=== PATIENT | female | born 1995 | race Caucasian/White ===

== ENCOUNTER 2017-02-05 18:26 | Emergency (ER) | payer OTHER ==
[~2017-02-05] VITALS: Ht 165.1 cm; Wt 56.8 kg
[2017-02-05] MEDS ORDERED: IBUP-2070 PO (18:50)
[2017-02-05 19:07] LABS: APPEARANCE,URINE CLOUDY (CLEAR); GLUCOSE, URINE (UA) NEGATIVE (NEGATIVE); KETONES,URINE NEGATIVE (NEGATIVE); LEUKOCYTE ESTERASE ,URINE LARGE (NEGATIVE); PH,URINE 5.5 (5.0-8.0); PROTEIN,URINE NEGATIVE (NEGATIVE)
[2017-02-05 19:13] LABS: ADD UA MICROSCOPIC YES; OCCULT BLOOD,URINE MODERATE (NEGATIVE)
[2017-02-05 19:14] LABS: SQUAMOUS EPITHELIAL CELL,UR Few /LPF (None Seen); WBC,URINE 51-100 /HPF (0-5)
[2017-02-05] MEDS ORDERED: LIDOCAINE HCL/PF 1% 2 ML VIAL IM ONE (19:45)
[2017-02-05] MEDS ORDERED: CefTRIAXone SODIUM 1 GM/VIAL IM ONE (19:45)
[2017-02-05 19:57] VITALS: BP 114/78
== END 2017-02-05 19:59 | disposition home or self-care (01) ==
LOC: EMS 18:28
DX: O86.20 Urinary tract infection following delivery, unspecified (principal)
CPT/HCPCS: 81001; 87086; 96372; 99284; J0696; J3490

== ENCOUNTER 2022-12-22 17:03 | Emergency (ER) | payer OTHER ==
[~2022-12-22] VITALS: Ht 165.1 cm; Wt 65.9 kg
[~2022-12-22 17:03] MED LIST: IBUP-1492 PO
[2022-12-22] MEDS ORDERED: IBUPROFEN 600 MG TABLET PO ONE (20:00)
[2022-12-22] MEDS ORDERED: IBUP-1554 PO (21:02)
[2022-12-22 21:24] VITALS: BP 112/66
== END 2022-12-22 21:46 | disposition home or self-care (01) ==
LOC: EMS 17:03
DX: S62.622A Displaced fracture of middle phalanx of right middle finger, initial encounter for closed fracture (principal); X58.XXXA Exposure to other specified factors, initial encounter; Y93.69 Activity, other involving other sports and athletics played as a team or group; Y92.89 Other specified places as the place of occurrence of the external cause; Y99.8 Other external cause status
CPT/HCPCS: 99283